=== PATIENT | female | born 1970 | race Caucasian/White ===

== ENCOUNTER 2020-10-06 15:21 | Emergency (ER) | payer OTHER ==
[~2020-10-06] VITALS: Ht 157.5 cm; Wt 98.8 kg
[2020-10-06] MEDS ORDERED: DEXAMETHASONE 4 MG/ML, 1ML PO ONE (16:00)
[2020-10-06] MEDS ORDERED: FAMOTIDINE 20 MG TABLET PO ONE (16:00)
--- NOTE | 2020-10-06 16:42 | NUR ---
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
--- NOTE | 2020-10-06 16:43 | NUR ---
PATIENT WALKED BACK FROM TRIAGE WITH CHIEF C/O RIGHT EYE SWELLING SINCE 1200. PATIENT WAS EATING BREAKFAST AND HER RIGHT EYE STARTED HURTING AND "WITHING A MATTER OF MINUTES IT WAS SWELLING." PATIENT REPORTS "MY THROAT FEELS FUNNY," DENIES DIFFICULTY SWALLOWING.
[2020-10-06 16:48] VITALS: BP 113/80
[2020-10-06] MEDS ORDERED: FAMOTIDINE 20 MG TABLET ONE (16:57)
[2020-10-06] MEDS ORDERED: DEXAMETHASONE 4 MG/ML, 1ML ONE (16:57)
--- NOTE | 2020-10-06 17:06 | NUR ---
ERMD AT BEDSIDE FOR EVALUATION.
[2020-10-06] MEDS ORDERED: DIPHENHYDRAMINE 25 MG CAPSULE ONE (17:23)
[2020-10-06] MEDS ORDERED: DIPHENHYDRAMINE 25 MG CAPSULE PO ONE (18:00)
--- NOTE | 2020-10-06 18:05 | NUR ---
Patient given discharge instructions and prescriptions and they have confirmed that they understand the instructions. Patient ambulatory with steady gait. NAD, all questions answered appropriately, denies additional needs at this time. No personal belongings left in room after discharge.
== END 2020-10-06 18:06 | disposition home or self-care (01) ==
LOC: ED 18:00
DX: H10.11 Acute atopic conjunctivitis, right eye (principal); T78.3XXA Angioneurotic edema, initial encounter; Z90.49 Acquired absence of other specified parts of digestive tract
CPT/HCPCS: 99284; J1100; Q0163